=== PATIENT | female | born 1985 | race Caucasian/White ===

== ENCOUNTER 2017-04-30 12:24 | Emergency (ER) | payer OTHER ==
[~2017-04-30] VITALS: Ht 172.7 cm; Wt 103.0 kg
[2017-04-30] MEDS ORDERED: ULTRAM50 M1 PO (13:13)
[2017-04-30 13:17] VITALS: BP 147/106
== END 2017-04-30 13:25 | disposition home or self-care (01) | DRG 605 ==
LOC: ED 12:24
DX: S80.02XA Contusion of left knee, initial encounter (principal); S80.12XA Contusion of left lower leg, initial encounter; W01.0XXA Fall on same level from slipping, tripping and stumbling without subsequent striking against object, initial encounter; Y93.89 Activity, other specified; Y92.241 Library as the place of occurrence of the external cause

== ENCOUNTER 2018-01-11 00:49 | Emergency (ER) | payer OTHER ==
[~2018-01-11] VITALS: Ht 172.7 cm; Wt 95.4 kg
[~2018-01-11 00:49] MED LIST: ULTRAM50 M1 PO
[2018-01-11] MEDS ORDERED: LORTAB 1010 MG PO (03:37)
[2018-01-11] MEDS ORDERED: FLEXERIL PO (03:37)
[2018-01-11 03:57] VITALS: BP 130/87
== END 2018-01-11 03:57 | disposition home or self-care (01) | DRG 552 ==
LOC: ED 00:49
DX: M51.36 Other intervertebral disc degeneration, lumbar region (principal); F17.210 Nicotine dependence, cigarettes, uncomplicated; I10 Essential (primary) hypertension

== ENCOUNTER 2018-11-30 09:08 | Emergency (ER) | payer OTHER ==
[~2018-11-30] VITALS: Ht 172.7 cm; Wt 97.3 kg
[~2018-11-30 09:08] MED LIST changes: +FLEXERIL PO; +LORTAB 1010 MG PO
[2018-11-30 10:28] LABS: HEMATOCRIT 44.3 % (37.0-47.0); HEMOGLOBIN 15.6 g/dl (12.0-16.0); IMMATURE GRANULOCYTES 0.3 % (0.0-5.0); MEAN CELL VOLUME 93.7 fL CALC (80.0-100.0); MEAN CORPUSCULAR HGB CONC 35.2 g/L CALC (32.0-36.0); NEUT# 5.69 thou/uL (2.00-7.15); RED BLOOD COUNT 4.73 mill/uL (4.20-5.60); RED CELL DISTRI WIDTH 12.2 % (11.5-15.5)
[2018-11-30 10:33] LABS: URINE BLOOD DIPSTICK LARGE (NEGATIVE); URINE COLOR YELLOW; URINE GLUCOSE - DIPSTICK NEGATIVE (NEGATIVE); URINE KETONE TRACE mg/dL (NEGATIVE); URINE NITRITE - DIPSTICK NEGATIVE (Negative); URINE PH 5.5 (4.5-8.0); URINE PROTEIN - DIPSTICK 100 mg/dL (NEG-TRACE); URINE SPECIFIC GRAVITY 1.025
[2018-11-30 10:34] LABS: URINE BILIRUBIN - DIPSTICK SMALL (NEGATIVE); URINE LEUK ESTERASE SMALL (NEGATIVE)
[2018-11-30] MEDS ORDERED: HYDROCHLOROT12.5 MG PO (10:46)
[2018-11-30 10:47] LABS: URINE BACTERIA FEW hpf; URINE RBC TNTC RBC/hpf (0-5); URINE SQUAMOUS EPITHELIAL CELL FEW EPI/hpf (0-FEW)
[2018-11-30 11:16] LABS: ALBUMIN 4.7 g/dL (3.2-5.0); ALKALINE PHOSPHATASE 96 u/l (38-126); AMYLASE 89 u/l (30-110); ANION GAP 20 (6-22 (CALC)); BUN 7 mg/dL (7-17); BUN/CREATININE RATIO 15 (12-20 (CALC)); CARBON DIOXIDE 26 mmol/l (22-30); CHLORIDE 96 mmol/l (95-108); CREATININE 0.4 mg/dL (0.5-1.0); GFR > 60 ML/MIN (>=60 (CALC)); GFR FOR AFR.AMER. > 60 ML/MIN (>=60 (CALC)); LIPASE 90 u/l (23-300); POTASSIUM 3.2 mmol/l (3.5-5.1); SGOT/AST 220 u/l (14-36); SODIUM 139 mmol/l (137-146); TOTAL PROTEIN 9.5 g/dL (6.3-8.2)
[2018-11-30] MEDS ORDERED: TRAMADOL HCL50 MG PO ×2 (11:37→11:39)
[2018-11-30] MEDS ORDERED: PHENERGAN25 MG RE ×2 (11:37→11:39)
[2018-11-30] MEDS ORDERED: BACTRIM DS1 TAB PO ×2 (11:38→11:39)
[2018-11-30 12:04] VITALS: BP 154/84
== END 2018-11-30 12:14 | disposition home or self-care (01) ==
LOC: ED 09:08
PROVIDERS: Family Medicine
DX: N39.0 Urinary tract infection, site not specified (principal); K80.20 Calculus of gallbladder without cholecystitis without obstruction; R11.2 Nausea with vomiting, unspecified; I10 Essential (primary) hypertension; R10.11 Right upper quadrant pain; R10.12 Left upper quadrant pain; F17.210 Nicotine dependence, cigarettes, uncomplicated

== ENCOUNTER 2018-12-07 11:52 | Emergency (ER) | payer OTHER ==
[~2018-12-07] VITALS: Ht 172.7 cm; Wt 100.0 kg
[~2018-12-07 11:52] MED LIST changes: +BACTRIM DS1 TAB PO; +HYDROCHLOROT12.5 MG PO; +PHENERGAN25 MG RE; +TRAMADOL HCL50 MG PO
[2018-12-07 13:03] LABS: HEMATOCRIT 47.7 % (37.0-47.0); HEMOGLOBIN 17.4 g/dl (12.0-16.0); IMMATURE GRANULOCYTES 0.4 % (0.0-5.0); MEAN CELL VOLUME 90.3 fL CALC (80.0-100.0); MEAN CORPUSCULAR HGB CONC 36.5 g/L CALC (32.0-36.0); NEUT# 7.21 thou/uL (2.00-7.15); RED BLOOD COUNT 5.28 mill/uL (4.20-5.60); RED CELL DISTRI WIDTH 11.9 % (11.5-15.5)
[2018-12-07 13:04] LABS: ALKALINE PHOSPHATASE 100 u/l (38-126); BILIRUBIN, TOTAL 2.4 mg/dL (0.0-1.4); BUN 13 mg/dL (7-17); BUN/CREATININE RATIO 23 (12-20 (CALC)); CARBON DIOXIDE 28 mmol/l (22-30); CREATININE 0.6 mg/dL (0.5-1.0); GFR > 60 ML/MIN (>=60 (CALC)); GFR FOR AFR.AMER. > 60 ML/MIN (>=60 (CALC)); LIPASE 112 u/l (23-300); POTASSIUM 3.2 mmol/l (3.5-5.1); SODIUM 134 mmol/l (137-146); TOTAL PROTEIN 10.5 g/dL (6.3-8.2)
[2018-12-07 13:14] LABS: ANION GAP 25 (6-22 (CALC)); CHLORIDE 84 mmol/l (95-108); SGOT/AST 589 u/l (14-36)
[2018-12-07 13:30] LABS: BARBITURATES NEGATIVE (NEGATIVE); COCAINE NEGATIVE (NEGATIVE); METHADONE NEGATIVE (NEGATIVE); OXCYCODONE NEGATIVE (NEGATIVE); TETRAHYDROCANNABIONOL NEGATIVE (NEGATIVE); TRICYLIC ANTIDEPRESSANTS NEGATIVE (NEGATIVE)
[2018-12-07 14:09] LABS: INTERNATIONAL NORMALIZED RATIO 1.1 RATIO (0.7-1.3); PROTHROMBIN TIME 11.2 SECONDS (9.0-12.5)
[2018-12-07 14:54] LABS: URINE BLOOD DIPSTICK LARGE (NEGATIVE); URINE GLUCOSE - DIPSTICK NEGATIVE (NEGATIVE); URINE KETONE TRACE mg/dL (NEGATIVE); URINE LEUK ESTERASE TRACE (NEGATIVE); URINE PH 6.5 (4.5-8.0); URINE PROTEIN - DIPSTICK >=300 mg/dL (NEG-TRACE); URINE SPECIFIC GRAVITY >=1.030
[2018-12-07 15:07] LABS: URINE BILIRUBIN - DIPSTICK MODERATE (NEGATIVE); URINE COLOR RED; URINE NITRITE - DIPSTICK POSITIVE (Negative)
[2018-12-07 15:08] LABS: URINE BACTERIA MODERATE hpf; URINE RBC TNTC RBC/hpf (0-5); URINE SQUAMOUS EPITHELIAL CELL FEW EPI/hpf (0-FEW)
[2018-12-07 17:25] VITALS: BP 139/82
== END 2018-12-07 17:25 | disposition left against medical advice (07) ==
LOC: ED 11:52
PROVIDERS: Emergency Medicine
DX: R00.0 Tachycardia, unspecified (principal); R74.8 Abnormal levels of other serum enzymes; N39.0 Urinary tract infection, site not specified; I10 Essential (primary) hypertension; F17.200 Nicotine dependence, unspecified, uncomplicated; Z91.19 Patient's noncompliance with other medical treatment and regimen; R07.9 Chest pain, unspecified; R61 Generalized hyperhidrosis

== ENCOUNTER 2019-05-17 20:34 | Emergency (ER) | payer OTHER ==
[~2019-05-17] VITALS: Ht 172.7 cm; Wt 90.0 kg
[2019-05-17] MEDS ORDERED: MOTRIN200 MG PO (21:02)
[2019-05-17 22:27] VITALS: BP 131/78
== END 2019-05-17 22:25 | disposition home or self-care (01) ==
LOC: ED 20:34
DX: G89.29 Other chronic pain (principal); M54.5 Low back pain; I10 Essential (primary) hypertension; F17.210 Nicotine dependence, cigarettes, uncomplicated

== ENCOUNTER 2019-07-04 16:12 | Emergency (ER) | payer OTHER ==
[~2019-07-04] VITALS: Ht 172.7 cm; Wt 72.0 kg
[~2019-07-04 16:12] MED LIST changes: +MOTRIN200 MG PO
[2019-07-04 16:49] LABS: URINE BLOOD DIPSTICK NEGATIVE (NEGATIVE); URINE COLOR YELLOW; URINE GLUCOSE - DIPSTICK NEGATIVE (NEGATIVE); URINE KETONE NEGATIVE (NEGATIVE); URINE LEUK ESTERASE NEGATIVE (NEGATIVE); URINE NITRITE - DIPSTICK NEGATIVE (Negative); URINE PROTEIN - DIPSTICK 30 mg/dL (NEG-TRACE); URINE SPECIFIC GRAVITY >=1.030
[2019-07-04 16:54] LABS: URINE BILIRUBIN - DIPSTICK SMALL (NEGATIVE)
[2019-07-04 16:58] LABS: BARBITURATES NEGATIVE (NEGATIVE); COCAINE NEGATIVE (NEGATIVE); METHADONE NEGATIVE (NEGATIVE); OXCYCODONE POSITIVE (NEGATIVE); TETRAHYDROCANNABIONOL NEGATIVE (NEGATIVE); TRICYLIC ANTIDEPRESSANTS NEGATIVE (NEGATIVE)
[2019-07-04] MEDS ORDERED: METHOCARBAM500 MG PO (17:00)
[2019-07-04 17:01] LABS: URINE SQUAMOUS EPITHELIAL CELL FEW EPI/hpf (0-FEW)
[2019-07-04] MEDS ORDERED: ULTRAM50 M1 PO (17:30)
[2019-07-04 17:40] VITALS: BP 139/79
== END 2019-07-04 17:40 | disposition home or self-care (01) ==
LOC: ED 16:12
PROVIDERS: Emergency Medicine
DX: M79.672 Pain in left foot (principal); M79.671 Pain in right foot; I10 Essential (primary) hypertension; F17.210 Nicotine dependence, cigarettes, uncomplicated; R20.2 Paresthesia of skin

== ENCOUNTER 2021-11-05 11:21 | Emergency (ER) | payer SELFPAY ==
[~2021-11-05] VITALS: Ht 172.7 cm; Wt 72.0 kg
[~2021-11-05 11:21] MED LIST changes: +METHOCARBAM500 MG PO
[2021-11-05] MEDS ORDERED: KEFLEX500 MG PO (12:46)
[2021-11-05 13:05] VITALS: BP 138/72
== END 2021-11-05 13:05 | disposition home or self-care (01) | DRG 563 ==
LOC: ED 11:21
DX: S43.402A Unspecified sprain of left shoulder joint, initial encounter (principal); S50.312A Abrasion of left elbow, initial encounter; I10 Essential (primary) hypertension; F17.210 Nicotine dependence, cigarettes, uncomplicated; W01.0XXA Fall on same level from slipping, tripping and stumbling without subsequent striking against object, initial encounter

== ENCOUNTER 2021-12-04 13:50 | Emergency (ER) | payer SELFPAY ==
[~2021-12-04] VITALS: Ht 167.6 cm; Wt 68.2 kg
[~2021-12-04 13:50] MED LIST changes: +KEFLEX500 MG PO
[2021-12-04] MEDS ORDERED: ULTRAM50 M1 PO (16:45)
[2021-12-04] MEDS ORDERED: CYCLOBENZAPRINE10 MG PO (16:45)
[2021-12-04 16:57] VITALS: BP 131/81
== END 2021-12-04 17:05 | disposition home or self-care (01) | DRG 563 ==
LOC: ED 13:50
DX: S43.402A Unspecified sprain of left shoulder joint, initial encounter (principal); S13.9XXA Sprain of joints and ligaments of unspecified parts of neck, initial encounter; I10 Essential (primary) hypertension; F17.210 Nicotine dependence, cigarettes, uncomplicated; X58.XXXA Exposure to other specified factors, initial encounter

== ENCOUNTER 2022-10-03 19:32 | Emergency (ER) | payer OTHER ==
[~2022-10-03] VITALS: Ht 167.6 cm; Wt 67.7 kg
[~2022-10-03 19:32] MED LIST changes: +CYCLOBENZAPRINE10 MG PO
[2022-10-03] MEDS ORDERED: TAM75CAP PO (20:26)
[2022-10-03 20:55] LABS: BASO% 0.3 % (0-3); EOS% 0.9 % (0-8); LYMPH% 6.7 % (15-41); MEAN CELL VOLUME 88.6 fL CALC (80.0-100.0); MEAN CORPUSCULAR HGB 31.4 pG CALC (26.0-32.0); MEAN CORPUSCULAR HGB CONC 35.4 g/dL CAL (32.0-36.0); MONO% 7.6 % (2-13); NEUT# 2.91 thou/uL (2.00-7.15); NEUT% 84.5 % (42-76); RED BLOOD COUNT 4.05 mill/uL (4.20-5.60); RED CELL DISTRI WIDTH 13.8 % (11.5-15.5)
[2022-10-03 21:05] LABS: ALBUMIN 4.5 g/dL (3.2-5.0); ALKALINE PHOSPHATASE 57 u/l (38-126); BUN 8 mg/dL (7-17); BUN/CREATININE RATIO 15 (12-20 (CALC)); CARBON DIOXIDE 26 mmol/l (22-30); CREATININE 0.5 mg/dL (0.5-1.0); GFR FOR AFR.AMER. > 60 ML/MIN (>=60 (CALC)); GFR OTHER RACES > 60 ML/MIN (>=60 (CALC)); POTASSIUM 3.7 mmol/l (3.5-5.1); SODIUM 135 mmol/l (137-146); TOTAL PROTEIN 8.4 g/dL (6.3-8.2)
[2022-10-03 21:06] LABS: ANION GAP 12 (6-22 (CALC)); BILIRUBIN, TOTAL 0.9 mg/dL (0.0-1.4); CHLORIDE 101 mmol/l (95-108); SGOT/AST 59 u/l (14-36)
[2022-10-03 21:07] LABS: HEMATOCRIT 35.9 % (37.0-47.0); HEMOGLOBIN 12.7 g/dl (12.0-16.0)
[2022-10-03 22:16] VITALS: BP 134/76
[2022-10-03 22:17] LABS: URINE BILIRUBIN - DIPSTICK NEGATIVE (NEGATIVE); URINE BLOOD DIPSTICK NEGATIVE (NEGATIVE); URINE COLOR YELLOW; URINE GLUCOSE - DIPSTICK NEGATIVE (NEGATIVE); URINE KETONE NEGATIVE (NEGATIVE); URINE LEUK ESTERASE NEGATIVE (NEGATIVE); URINE PROTEIN - DIPSTICK NEGATIVE (NEG-TRACE)
[2022-10-03 22:19] LABS: URINE NITRITE - DIPSTICK NEGATIVE (Negative)
== END 2022-10-03 22:21 | disposition home or self-care (01) | DRG 153 ==
LOC: ED 19:32
PROVIDERS: Emergency Medicine
DX: J11.1 Influenza due to unidentified influenza virus with other respiratory manifestations (principal); Z20.822 Contact with and (suspected) exposure to COVID-19; I10 Essential (primary) hypertension